=== PATIENT | male | born 1970 | race Caucasian/White ===

== ENCOUNTER 2020-01-16 21:03 | Emergency (ER) | payer BC, SELFPAY ==
[2020-01-16 21:41] VITALS: BP 181/97; PULSE 91; RESP 18; TEMP 39.2; O2SAT 99; BMI 48.4
--- NOTE | 2020-01-16 21:47 | XRR_ITS ---
PROCEDURE INFORMATION: Exam: XR Chest, 1 View Exam date and time: 01/16/2020 10:22 PM Age: 49 years old Clinical indication: Cough and fever; Prior surgery; Surgery date: <1 month; Patient HX: Gastric sleeve TECHNIQUE: Imaging protocol: XR of the chest Views: 1 view. COMPARISON: CR Chest 1 [place] [id number] 05/03/2019 12:41 PM FINDINGS: Lungs: Unremarkable. No consolidation. Pleural space: Unremarkable. No pleural effusion. No pneumothorax. Heart/Mediastinum: Unremarkable. No cardiomegaly. Bones/joints: Unremarkable. XR/XR chest 1V portable [id number] IMPRESSION: No acute findings. Stable chest compared with 05/03/2019.
[2020-01-16 22:05] LABS: Basophils # 0.1 10^3/uL (0.0-0.1); Basophils % 0.4 %; Eosinophils % 0.2 %; Hematocrit 41.4 % (42.0-52.0); Hemoglobin 13.1 g/dL (11.7-16.6); Lymphocytes # 0.8 10^3/uL (0.8-4.8); Lymphocytes % 6.2 %; Mean Corpuscular HGB Conc 31.6 g/dL (30.0-36.0); Mean Corpuscular Hemoglobin 25.8 pg (28.0-34.0); Mean Corpuscular Volume 81.7 fL (80-94); Mean Platelet Volume 9.3 fL (7.4-10.4); Monocytes # 0.6 10^3/uL (0.2-0.9); Monocytes % 5.1 %; Neutrophils % 87.9 %; Nucleated Red Blood Cells % 0 %; Platelet Count 367 10^3/cmm (130-400); Red Blood Count 5.07 10^6/uL (4.1-5.3); Red Cell Distribution Width 14.2 % (12.1-15.1); White Blood Count 12.5 10^3/uL (4.0-10.0)
--- NOTE | 2020-01-16 22:05 | W.ED.FEVER ---
HPI - Fever General: Chief Complaint: Fever Stated Complaint: fever, sob, londono, back pain, cough Time Seen by Provider: 01/16/20 21:47 Source: patient Mode of arrival: ambulatory Limitations: no limitations History of Present Illness: HPI Narrative: 49-year-old male comes in today with complaints of fever and cough starting today. Patient states yesterday he did throw up once or twice and then since then he is woke up with a headache this morning and noted that he had a cough starting this evening with fever. Patient appears mildly unwell. Patient appears in no acute distress. MD elicited complaint: fever and malaise Review of Systems General: Reports: 10 or more systems reviewed and unremarkable except in HPI and below Const: Reports: fever(s) Physical Exam Const: COMMON NORMALS: no acute distress and patient oriented x3 GENERAL APPEARANCE: cooperative HENMT: COMMON NORMALS: normocephalic and Normal external nose present HEAD & SCALP: normal to inspection and normocephalic NOSE: Normal external nose present MOUTH: Normal oral and palatal mucosa present THROAT: posterior oropharynx normal Eye: GENERAL EYE: appearance normal, both eyes and all related structures Neck/C-Spine: COMMON NORMALS: full ROM Lymph: LYMPHATIC: no lymphadenopathy noted Chest: COMMONS NORMALS: normal inspection of the chest Resp: COMMON NORMALS: normal respiratory effort EFFORT & INSPECTION: Yes able to speak in complete sentences Cardio: COMMON NORMALS: regular rate and regular rhythm RATE: regular rate RHYTHM: regular rhythm GI: COMMON NORMALS: non-tender : COMMON NORMALS: Yes no CVA tenderness BLADDER/KIDNEY EXAM: Yes no CVA tenderness Back/Pelvis: COMMON NORMALS: no CVA tenderness and thoracic and lumbar spine normal to inspection Extremity: COMMON NORMALS: normal to inspection Neuro: COMMON NORMALS: patient oriented x3 and moves all extremities Psych: COMMON NORMALS: mental status grossly normal and cooperative Skin: COMMON NORMALS: no rashes or lesions noted GENERAL SKIN EXAM: no rashes or lesions noted Course Vital Signs: Vital signs: Vital Signs Temperature 102.5 F H 01/16/20 21:41 Pulse Rate 100 01/16/20 23:08 Respiratory Rate 17 01/16/20 22:29 Blood Pressure 169/84 01/16/20 22:29 Pulse Oximetry 94 01/16/20 23:08 MDM - Fever MDM Narrative: Medical decision making narrative: Patient comes in today for complaints of emesis x2 yesterday, fever with cough and nasal drainage starting today. 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 Exam notes fever of 102.5 and normal vital signs except for some mild elevated blood pressure. Abdomen soft nontender. Lungs are clear to auscultation. No signs of other infection is noted on exam. Differential diagnosis includes but not limited to viral infection, pneumonia, urinary tract infection, influenza, strep pharyngitis, COVID-19. Strep and flu were both negative. Chest x-ray was normal. CBC showed a little bit of elevation in the white blood cells at 12,000, CMP was normal, and urinalysis was clear. Reviewed exam with patient recommendations for treatment and follow-up. Patient reports understanding agreed to plan with need to return to the ER for worsening symptoms or new concerns. Lab Data: Labs: Lab Results 01/16/20 01/16/20 01/16/20 Range/Units 20:58 20:58 20:58 WBC 12.5 H (4.0-10.0) 10^3/ uL RBC 5.07 (4.1-5.3) 10^6/u L Hgb 13.1 (11.7-16.6) g/dL Hct 41.4 L (42.0-52.0) % MCV 81.7 (80-94) fL MCH 25.8 L (28.0-34.0) pg MCHC 31.6 (30.0-36.0) g/dL RDW 14.2 (12.1-15.1) % Plt Count 367 (130-400) 10^3/c mm MPV 9.3 (7.4-10.4) fL Neut % (Auto) 87.9 % Lymph % (Auto) 6.2 % [place] % (Auto) 5.1 % Eos % (Auto) 0.2 % Baso % (Auto) 0.4 % Neut # (Auto) 11.00 H (1.8-7.7) 10^3/u L Lymph # (Auto) 0.8 (0.8-4.8) 10^3/u L [place]oddard # (Auto) 0.6 (0.2-0.9) 10^3/u L Eos # (Auto) 0.0 (0.0-0.8) 10^3/u L Baso # (Auto) 0.1 (0.0-0.1) 10^3/u L Nucleated RBC % (a uto) 0 % Nucleated RBCs # 0.0 /100WBC Sodium 138 (136-145) mmol/L Potassium 4.6 (3.5-5.1) mmol/L Chloride 103 (98-107) mmol/L Carbon Dioxide 26 (22-29) mmol/L Anion Gap 13.6 (5-19) BUN 13 (6-20) mg/dL Creatinine 0.8 (0.7-1.2) mg/dL GFR Calculation 102.7 (90-130) mL/min Glucose 98 (65-115) mg/dL Calculated Osmolal ity 282 L (285-295) mOsm/k g Lactic Acid 1.0 (0.5-2.2) mmol/L Calcium 9.6 (8.5-10.5) mg/dL Total Bilirubin 0.3 (0.15-1.2) mg/dL AST 24 (0-40) U/L ALT 31 (0-41) U/L Alkaline Phosphata se 103 (40-130) IU/L Total Protein 8.0 (6.6-8.7) g/dL Albumin 4.3 (3.5-5.2) g/dL Globulin 3.7 (1.3-4.6) g/dL Urine Color (Yellow) Urine Appearance (CLEAR) Urine pH (5-7) Ur Specific Gravit y (1.005-1.030) Urine Protein (Negative) Urine Glucose (UA) (Normal) Urine Ketones (Negative) Urine Blood (Negative) Urine Nitrate (Negative) Urine Bilirubin (NEGATIVE) Prot Sulfosalicyli c Acd (Negative) Urine Urobilinogen (Negative) mg/dL Ur Leukocyte Zamzam ase (Negative) Influenza Type A A g (Negative) Influenza Type B A g (Negative) Group A Strep Rapi d (Negative) 01/16/20 01/16/20 01/16/20 Range/Units 21:59 21:59 22:19 WBC (4.0-10.0) 10^3/ uL RBC (4.1-5.3) 10^6/u L Hgb (11.7-16.6) g/dL Hct (42.0-52.0) % MCV (80-94) fL MCH (28.0-34.0) pg MCHC (30.0-36.0) g/dL RDW (12.1-15.1) % Plt Count (130-400) 10^3/c mm MPV (7.4-10.4) fL Neut % (Auto) % Lymph % (Auto) % [place] % (Auto) % Eos % (Auto) % Baso % (Auto) % Neut # (Auto) (1.8-7.7) 10^3/u L Lymph # (Auto) (0.8-4.8) 10^3/u L Stoddard # (Auto) (0.2-0.9) 10^3/u L Eos # (Auto) (0.0-0.8) 10^3/u L Baso # (Auto) (0.0-0.1) 10^3/u L Nucleated RBC % (a uto) % Nucleated RBCs # /100WBC Sodium (136-145) mmol/L Potassium (3.5-5.1) mmol/L Chloride (98-107) mmol/L Carbon Dioxide (22-29) mmol/L Anion Gap (5-19) BUN (6-20) mg/dL Creatinine (0.7-1.2) mg/dL GFR Calculation (90-130) mL/min Glucose (65-115) mg/dL Calculated Osmolal ity (285-295) mOsm/k g Lactic Acid (0.5-2.2) mmol/L Calcium (8.5-10.5) mg/dL Total Bilirubin (0.15-1.2) mg/dL AST (0-40) U/L ALT (0-41) U/L Alkaline Phosphata se (40-130) IU/L Total Protein (6.6-8.7) g/dL Albumin (3.5-5.2) g/dL Globulin (1.3-4.6) g/dL Urine Color Yellow (Yellow) Urine Appearance Clear (CLEAR) Urine pH 8 H (5-7) Ur Specific Gravit y 1.010 (1.005-1.030) Urine Protein Neg (Negative) Urine Glucose (UA) Norm (Normal) Urine Ketones Negative (Negative) Urine Blood Neg (Negative) Urine Nitrate Negative (Negative) Urine Bilirubin Neg (NEGATIVE) Prot Sulfosalicyli c Acd Negative (Negative) Urine Urobilinogen Norm (Negative) mg/dL Ur Leukocyte Zamzam ase Negative (Negative) Influenza Type A A g Negative (Negative) Influenza Type B A g Negative (Negative) Group A Strep Rapi d Negative (Negative) Discharge Plan Discharge Patient Disposition: Home Clinical Impression: Viral infection, Fever of unknown origin Condition: Stable Discharge Orders: Discharge Order (Routine); Ordered 01/16/20 Ordered By: Fernie Madison Referrals: Eitan Mackay MD [Primary Care Provider] - Discharge Diet: Usual diet Discharge Activity: Increase activity as tolerated Patient Instructions: Viral Syndrome (ED) Activity Restrictions/Additional Instructions: Drink plenty of water. Use acetaminophen and ibuprofen for pain and fever. The CDC at this time recommends that you self quarantine for 10 days after start of symptoms. At the end of the 10 days as long as you have been fever free for 24 hours you may return to normal activity. Return to the emergency department for worsening signs and symptoms with increased shortness of breath, or new symptoms. You may use [id number] cough or cold medications as needed. Follow-up with primary care as needed. Return to the ED for new concerns. 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
[2020-01-16 22:29] VITALS: BP 169/84; PULSE 96; RESP 17; O2SAT 97
[2020-01-16 22:30] LABS: Alanine Aminotransferase 31 U/L (0-41); Albumin Level 4.3 g/dL (3.5-5.2); Alkaline Phosphatase 103 IU/L (40-130); Anion Gap 13.6 (5-19); Aspartate Amino Transferase 24 U/L (0-40); Blood Urea Nitrogen 13 mg/dL (6-20); Calcium 9.6 mg/dL (8.5-10.5); Carbon Dioxide 26 mmol/L (22-29); Chloride 103 mmol/L (98-107); Creatinine Clr Calc Pharmacy 151.2306; Globulin 3.7 g/dL (1.3-4.6); Glomerular Filtration Rate 102.7 mL/min (90-130); Glucose 98 mg/dL (65-115); Osmolality Calculated 282 mOsm/kg (285-295); Potassium 4.6 mmol/L (3.5-5.1); Sodium 138 mmol/L (136-145); Total Bilirubin 0.3 mg/dL (0.15-1.2)
[2020-01-16] MEDS: ibuprofen 600 mg Tablet PO (22:31)
[2020-01-16 22:39] LABS: Add Urine Microscopic? NO
[2020-01-16 22:48] LABS: Bilirubin Urine Neg (NEGATIVE); Blood Urine Neg (Negative); Glucose Urine UA Norm (Normal); Ketones Urine Negative (Negative); Leukocyte Esterase Urine Negative (Negative); Nitrate Urine Negative (Negative); Protein Urine Neg (Negative); Sulfosalicylic Acid Urine Negative (Negative); Urine Appearance Clear (CLEAR); Urine Color Yellow (Yellow); Urobilinogen Urine Norm (Negative); pH Urine 8 (5-7)
[2020-01-16 22:55] LABS: Rapid Strep A Test Negative (Negative)
[2020-01-16 23:02] LABS: Influenza A by IFA Negative (Negative); Influenza B by IFA Negative (Negative)
[2020-01-16 23:08] VITALS: PULSE 100; O2SAT 94
[2020-01-16 23:51] VITALS: BP 152/79; PULSE 93; RESP 18; O2SAT 96
[2020-01-18 15:20] LABS: Quest SARS-CoV-2 RNA NOT DETECTED (NOT DETECTED)
== END 2020-01-16 23:52 | disposition home or self-care (01) ==
PROVIDERS: Emergency Provider Nurse Practitioner Family; PCP Internal Medicine
DX: B34.9 Viral infection, unspecified (principal)
CPT/HCPCS: 12345; 36415; 71045; 80053; 81003; 83605; 85025; 87081; 87635; 87804; 87880; 99282; 99283

== ENCOUNTER 2021-12-02 15:32 | Outpatient (CLI) | payer BC, SELFPAY ==
--- NOTE | 2021-12-02 15:46 | XRR_ITS ---
PROCEDURE INFORMATION: Exam: XR Right Forearm Exam date and time: 12/02/2021 3:53 PM Age: 51 years old Clinical indication: Lower or forearm; Right; Patient HX: Chronic pain RT wrist; Additional info: Right wrist pain, pain of right arm TECHNIQUE: Imaging protocol: XR Right forearm. Views: 2 views. COMPARISON: CR XR wrist RT min 3V* [id number] 12/02/2021 3:53 PM FINDINGS: Bones/joints: Bones intact and normally aligned. Joint spaces maintained. Soft tissues: Normal. XR/XR forearm RT 2V [id number] IMPRESSION: No acute radiographic findings.
--- NOTE | 2021-12-02 15:46 | XRR_ITS ---
PROCEDURE INFORMATION: Exam: XR Right Wrist Exam date and time: 12/02/2021 3:53 PM Age: 51 years old Clinical indication: Right; Patient HX: Chronic pain RT wrist; Additional info: Right wrist pain, pain of right arm TECHNIQUE: Imaging protocol: XR Right wrist. Views: 3 or more views. COMPARISON: CR XR forearm RT 2V [id number] 12/02/2021 3:53 PM FINDINGS: Bones/joints: Bones intact and normally aligned. Joint spaces maintained. Soft tissues: Normal. XR/XR wrist RT min 3V* [id number] IMPRESSION: No acute radiographic findings.
== END 2021-12-02 15:33 | disposition home or self-care (01) ==
LOC: RAD 15:35
PROVIDERS: PCP Internal Medicine; Visit Provider Nurse Practitioner Family
DX: M25.531 Pain in right wrist (principal); M79.601 Pain in right arm
CPT/HCPCS: 73090; 73110

== ENCOUNTER 2022-03-20 10:30 | Emergency (ER) | payer BC, SELFPAY ==
[2022-03-20 10:42] VITALS: BP 182/97; PULSE 75; RESP 18; TEMP 36.8; O2SAT 99; BMI 54.0
--- NOTE | 2022-03-20 10:48 | XR_ITS ---
WS: [id number] Exam: XR shoulder RT min 2V* [id number] Date/Time of Exam: 03/20/2022 10:54 AM Reason For Exam: injury to right shoulder No fracture or dislocation noted. Soft tissues are unremarkable. XR/XR shoulder RT min 2V* [id number] IMPRESSION: 1. Negative right shoulder.
--- NOTE | 2022-03-20 11:32 | ED_ITS ---
HPI - Extremity Problem General: Chief complaint: Extremity Injury, Upper Stated complaint: Right shoulder pain Time Seen by Provider: 03/20/22 11:24 History of Present Illness: Patient is a 51-year-old male comes to the ED with right shoulder pain. Patient says symptoms started approximately 4 days ago. 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 He woke up 4 days ago with pain in his right shoulder that radiates down to his arm and goes up into right side of his neck. He rates the pain currently 9 out of 10. Any movement in right arm and right shoulder causes worsening symptoms. He endorses having full range of motion in right arm and shoulder but it does cause pain. Patient is taken some leftover Percocet he had from a previous surgery and it helped his pain a little bit. Denies any fall or trauma to cause worsening pain. Denies any chest pain or shortness of breath. Associated symptoms: Deny chest pain, fever(s) or rash Review of Systems Const: Denies: fever(s), chills or fatigue Eyes: Denies: change in vision or eye discomfort ENMT: Denies: throat pain, odynophagia, nasal discharge or nasal congestion Card: Denies: chest pain, palpitations, edema, swelling of feet/ankles, dyspnea on exertion or orthopnea Resp: Denies: dyspnea, productive cough or non-productive cough GI: Denies: abdominal pain, nausea, vomiting, diarrhea, constipation or hematochezia : Denies: flank pain, difficulty urinating, dysuria or hematuria Musc: Reports: extremity pain (Right shoulder); Denies: neck pain, back pain or extremity swelling Skin/Breast: Denies: rash or new lesions Neuro: Denies: headache(s), numbness in extremities or weakness in extremities PFS ED PFSH: Medical History (Updated 03/21/22 @ 17:17 by NATALIA Salcedo) No pertinent family history Surgical History (Updated 03/21/22 @ 17:17 by NATALIA Salcedo) No pertinent past surgical history Social History Smoking and tobacco status: never smoked Physical Exam Const: COMMON NORMALS: patient oriented x3 and alert GENERAL APPEARANCE: cooperative HENMT: COMMON NORMALS: normocephalic HEAD & SCALP: normocephalic MOUTH: Normal oral and palatal mucosa present THROAT: posterior oropharynx normal and uvula midline Neck/C-Spine: COMMON NORMALS: supple GENERAL: Yes normal visual inspection Resp: COMMON NORMALS: normal respiratory effort, No retractions, No use of acc essory muscles and clear to auscultation bilaterally AUSCULTATION: clear to auscultation bilaterally Cardio: COMMON NORMALS: regular rate, regular rhythm, S1 normal heart sound present, S2 normal heart sound present, No gallops present (Cardio), No clicks present (Cardio), No murmurs present (Cardio) and Peripheral pulses 2+ throughout RATE: regular rate RHYTHM: regular rhythm HEART SOUNDS: S1 normal heart sound present and S2 normal heart sound present PERIPHERAL PULSES: Peripheral pulses 2+ throughout GI: COMMON NORMALS: Normal to inspection, nondistended, normoactive bowel sounds present, Soft to palpation, non-tender and no masses PALPATION: Yes Soft to palpation : COMMON NORMALS: Yes no CVA tenderness BLADDER/KIDNEY EXAM: Yes no CVA tenderness Back/Pelvis: COMMON NORMALS: no CVA tenderness Extremity: NARRATIVE EXTREMITY EXAM: Right shoulder?full range of motion but endorses some discomfort?relief of pain briefly when right arm is abducted over head. Tenderness over the posterior aspect of shoulder. Neurovascular tact distally. GENERAL: Yes normal exam except as noted Neuro: COMMON NORMALS: patient oriented x3 SENSORIUM/ORIENTATION: Yes alert GAIT: Yes Normal gait present Skin: GENERAL SKIN EXAM: dry skin Course Vital Signs: Vital signs: Vital Signs Temperature 98.2 F 03/20/22 10:42 Pulse Rate 75 03/20/22 10:42 Respiratory Rate 20 H 03/20/22 12:13 Blood Pressure 182/97 03/20/22 10:42 Pulse Oximetry 99 03/20/22 10:42 Oxygen Delivery Me thod 03/20/22 10:42 MDM - Extremity (Nontraumatic) Medical Decision Making Patient is a 51-year-old male comes to the ED with right shoulder pain. 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 Denies any chest pain or shortness of breath. Vitals are stable. Patient does appear to be in some pain with his right shoulder. He and has full range of motion but endorses some pain with range of motion. Neurovascular intact. He has some tenderness to the posterior aspect of right shoulder. X-ray of right shoulder and cervical spine showed no acute findings. Patient was given a shot of morphine and Norflex and Solu- Medrol and he only reports a little relief from pain. Given patient's clinical appearance and his discomfort and pain I am referring him to Ortho for follow-up on right shoulder pain. He was put in a shoulder sling and discharged home with a prescription for steroid, ibuprofen 800 mg, muscle relaxer and a couple hydrocodone for pain. Return to ED precautions given. Patient is done agree with plan. Lab Data Radiology Impressions Shoulder X-Ray 03/20/22 10:48 IMPRESSION: 1. Negative right shoulder. Cervical Spine X-Ray 03/20/22 11:42 IMPRESSION: 1. No fracture or malalignment. Discharge Plan Discharge Patient Disposition: Home Clinical Impression: Right shoulder pain Qualifiers: Chronicity: acute Qualified Code(s): M25.511 - Pain in right shoulder Condition: Stable Prescriptions: New prednisone 20 mg tablet 20 mg PO BID 5 Days Qty: 10 0RF cyclobenzaprine 10 mg tablet 10 mg PO BID PRN (Reason: muscle spasm) Qty: 20 0RF ibuprofen 800 mg tablet 800 mg PO Q8H PRN (Reason: pain) Qty: 20 0RF ondansetron 4 mg tablet,disintegrating 4 mg PO Q8H PRN (Reason: nausea and vomiting) Qty: 12 0RF No Action Adacel(Tdap Adolesn/Adult)(PF) 2 Lf-(2.5-5-3-5 mcg)-5Lf/0.5 mL syringe 0.5 ml IM ONCE Qty: 0.5 0RF cephalexin 500 mg capsule 500 mg PO TID 10 Days Qty: 30 0RF Discharge Orders: Discharge ED (Routine); Ordered 03/20/22 Ordered By: Johnny Brody Referrals: Eitan Mackay MD [Primary Care Provider] - Discharge Diet: Regular Discharge Activity: Limit activity as instructed Patient Instructions: Opioid Safety Activity Restrictions/Additional Instructions: Follow-up with medical provider as directed. Case management to be contacted in the next several days set up an appointment with Ortho for follow-up. Take medications as prescribed. Rest and ice right shoulder multiple times a day for about 10 to 15 minutes to help with symptoms. Return to the ER or your medical provider if condition worsens. Please read and understand discharge instructions. Thank you for choosing [facility] for your healthcare needs today. Please realize this is an emergency room and that we are providing you with a medical screening exam and this may not be complete and all inclusive of all the testing and or work up that you may need to determine your ailment or severity of your illness. It is very important that you follow up as instructed or that you return to the Emergency Department should you have concerns or if your condition changes or worsens in any way. 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
--- NOTE | 2022-03-20 11:42 | XR_ITS ---
WS: [id number] Exam: XR cervical spine 3V* [id number] Date/Time of Exam: 03/20/2022 11:44 AM Reason For Exam: pain radiating from neck down to r. shoulder and arm No fracture or dislocation involving the upper 6 cervical vertebra. C7 is not completely visualized o n the lateral view. Disc spaces are well-maintained. Posterior elements are intact. Paraspinal soft t issues are unremarkable. The odontoid is intact. XR/XR cervical spine 3V* [id number] IMPRESSION: 1. No fracture or malalignment.
[2022-03-20] MEDS: orphenadrine 30 mg/mL Inj 2 mL 60 MG IM (12:03)
[2022-03-20 12:13] VITALS: RESP 20
[2022-03-20] MEDS: morphine 4 mg/mL SDV 1 mL IM (12:13)
--- NOTE | 2022-03-21 07:58 | DCPLANNER ---
Addendum entered by Mandy Aguirre 03/24/22 09:56: Patient has a follow up appointment scheduled with ortho - patient did attend appointment. Addendum entered by Mandy Aguirre 03/21/22 15:00: Patient has a follow up appointment scheduled for , March 23, 2022 at 7:[address] Brody at ortho. Clinic will call patient with appointment information. Original Note: gift shop manager had message to schedule a follow up appointment for patient with ortho. gift shop manager sent patients information to the front office staff at ortho. Patients information will be printed and reviewed. Clinic will call patient with appointment information.
== END 2022-03-20 13:05 | disposition home or self-care (01) ==
PROVIDERS: Emergency Provider Physician Assistant; PCP Internal Medicine
DX: M25.511 Pain in right shoulder (principal)
CPT/HCPCS: 72040; 73030; 96372; 99284; J2270; J2360; J2930

== ENCOUNTER 2022-09-23 15:04 | Outpatient (CLI) | payer BC, SELFPAY ==
--- NOTE | 2022-09-23 15:51 | XRR_ITS ---
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 Views: 3 or more views. COMPARISON: No relevant prior studies available. FINDINGS: Bones/joints: There mild degenerative changes across the pubic symphysis and sacroiliac joints. There are small marginal osteophytes at the superolateral aspects of the acetabula. Soft tissues: Normal. XR/XR sacroiliac jts m 3V [id number] IMPRESSION: No acute findings.Non acute findings as described above.
--- NOTE | 2022-09-23 15:51 | XRR_ITS ---
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 Views: 2 or 3 views. COMPARISON: No relevant prior studies available. FINDINGS: Bones/joints: There are degenerative changes throughout the visualized spine including marginal osteophyte formations, endplate degenerative changes, and facet arthropathy. Multilevel disc space narrowing. There are minimal chronic appearing anterior compression deformities of the T11, T12, and L1 vertebra. Soft tissues: Unremarkable. XR/XR lumbar spine 2-3V* [id number] IMPRESSION: 1. There are minimal chronic appearing anterior compression deformities of the T11, T12, and L1 vertebra. 2. There are degenerative changes as described above. No evidence for acute fracture.
--- NOTE | 2022-09-23 15:51 | XRR_ITS ---
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 Views: 3 or more views. COMPARISON: No relevant prior studies available. FINDINGS: Bones/joints: Normal. Soft tissues: Normal. XR/XR hand RT min 3V* [id number] IMPRESSION: No acute findings.
[2022-09-23 16:31] LABS: Erythrocyte Sedimentation Rate 39 mm/hr (0-10)
[2022-09-23 16:47] LABS: 25 Hydroxy Vitamin D 14 ng/mL (30-100)
[2022-09-23 18:03] LABS: Hepatitis B Core AB, Total Non-Reactive (Nonreactive); Hepatitis B Surface Antigen Non-Reactive (Nonreactive); Hepatitis C Virus Antibody Non-Reactive (Nonreactive)
[2022-09-25 14:10] LABS: Cyclic Citrullinated Peptide <16 UNITS
[2022-09-26 22:59] LABS: HLA-B27 NEGATIVE (NEGATIVE)
== END 2022-09-23 15:05 | disposition home or self-care (01) ==
PROVIDERS: PCP Internal Medicine; Visit Provider Internal Medicine Rheumatology
DX: Z11.59 Encounter for screening for other viral diseases (principal); M19.90 Unspecified osteoarthritis, unspecified site; Z79.899 Other long term (current) drug therapy; M45.6 Ankylosing spondylitis lumbar region
CPT/HCPCS: 36415; 72100; 72202; 73130; 82306; 85651; 86140; 86200; 86431; 86480; 86704; 86803; 86812; 87340

== ENCOUNTER → 2022-09-29 10:33 | Outpatient (BNVA) | payer BC, SELFPAY | PROVIDERS: PCP Internal Medicine; Visit Provider Internal Medicine Rheumatology | DX: M19.90 Unspecified osteoarthritis, unspecified site (principal); Z11.59 Encounter for screening for other viral diseases; Z79.899 Other long term (current) drug therapy | CPT/HCPCS: 86480 ==

== ENCOUNTER → 2022-10-12 11:49 | Outpatient (BNVA) | payer BC, SELFPAY | PROVIDERS: PCP Internal Medicine; Visit Provider Nurse Practitioner Family | DX: Z13.220 Encounter for screening for lipoid disorders (principal); Z12.5 Encounter for screening for malignant neoplasm of prostate; E55.9 Vitamin D deficiency, unspecified; Z68.43 Body mass index [BMI] 50.0-59.9, adult; Z98.84 Bariatric surgery status | CPT/HCPCS: 80053; 80061; 84443; G0103 ==

== ENCOUNTER 2022-10-13 14:15 | Outpatient (CLI) | payer BC, SELFPAY ==
--- NOTE | 2022-10-13 14:00 | XR_ITS ---
WS: [id number] DEXA (DUAL ENERGY X-RAY ABSORPTIOMETRY) Bone mineral density was performed using a Seekly machine. HISTORY: M81.0 - Age-related osteoporosis without current pathology... COMPARISON: None available. Lumbar spine BMD (L2-L3): 1.711 T score: 3.9 Z score: 2.4 Total hip BMD: Left: 1.139 g/cm2. T score: 0.3 Z score: 0.2 Right: 1.137 g/cm2. T score: 0.3 Z score: 0.2 10 year probability of a major osteoporotic fracture is 4.4%. XR/XR DEXA axial skeleton* [id number] IMPRESSION: NORMAL BONE MINERAL DENSITY.
== END 2022-10-13 14:16 | disposition home or self-care (01) ==
PROVIDERS: PCP Internal Medicine; Visit Provider Internal Medicine Rheumatology
DX: M81.0 Age-related osteoporosis without current pathological fracture (principal)
CPT/HCPCS: 77080

== ENCOUNTER → 2023-03-15 16:22 | Outpatient (BNVA) | payer BC, SELFPAY | PROVIDERS: PCP Nurse Practitioner Family; Visit Provider Nurse Practitioner Family | DX: Z13.1 Encounter for screening for diabetes mellitus; I10 Essential (primary) hypertension; Z76.89 Persons encountering health services in other specified circumstances | CPT/HCPCS: 80053; 80061; 82306; 83036 ==

== ENCOUNTER → 2023-11-13 08:58 | Outpatient (BNVA) | payer BC, SELFPAY | PROVIDERS: PCP Nurse Practitioner Family; Visit Provider Nurse Practitioner Family | DX: R53.83 Other fatigue (principal); R42 Dizziness and giddiness; R51.9 Headache, unspecified; R55 Syncope and collapse; Z68.43 Body mass index [BMI] 50.0-59.9, adult; I10 Essential (primary) hypertension; G44.209 Tension-type headache, unspecified, not intractable; J32.9 Chronic sinusitis, unspecified | CPT/HCPCS: 80053; 80061; 83036; 84443; 85025; 93005 ==

== ENCOUNTER → 2024-05-26 11:35 | Outpatient (BNVA) | payer BC, SELFPAY | PROVIDERS: PCP Nurse Practitioner Family; Visit Provider Internal Medicine Cardiovascular Disease | DX: R07.9 Chest pain, unspecified (principal); R55 Syncope and collapse | CPT/HCPCS: 93005 ==

== ENCOUNTER 2024-09-23 06:00 | Outpatient (RCR) | payer BC, SELFPAY | END 2024-10-22 23:59 | disposition home or self-care (01) | LOC: TPT 06:00 | PROVIDERS: PCP Nurse Practitioner Family; Visit Provider Nurse Practitioner Family | DX: M54.16 Radiculopathy, lumbar region (principal) | CPT/HCPCS: 97110; 97162 ==

== ENCOUNTER 2024-09-23 16:57 | Outpatient (CLI) | payer BC, SELFPAY ==
--- NOTE | 2024-09-23 17:10 | CTR_ITS ---
PROCEDURE INFORMATION: Exam: CT Lumbar Spine Without Contrast Exam date and time: 09/23/2024 5:18 PM Age: 53 years old Clinical indication: Low back pain x 10 weeks, no known injury; Additional info: Low back pain, radiculopathy lumbar region TECHNIQUE: Imaging protocol: Computed tomography of the lumbar spine without contrast. Radiation optimization: All CT scans at this facility use at least one of these dose optimization techniques: automated exposure control; mA and/or kV adjustment per patient size (includes targeted exams where dose is matched to clinical indication); or iterative reconstruction. COMPARISON: CR XR lumbar spine 2-3V* [id number] 09/23/2022 3:52 PM RADIATION DOSE METRICS: Total DLP (mGy-cm): 1977.19 FINDINGS: Bones/joints: Alignment is normal. Diffuse degenerative disc disease and facet arthropathy. Severe canal stenosis at L4-L5. Moderate stenosis L3-L4. Substantial erosive changes bilaterally in the L4-L5 facet joints. No acute fracture seen. Mild nonacute T12 compression fracture. Severe left-sided bony neural foraminal narrowing at L5-S1. Soft tissues: Unremarkable. CT/CT lumbar spine wo con* [id number] IMPRESSION: 1. Diffuse degenerative changes. 2. Severe stenosis L4-L5. 3. Severe bony neural foraminal narrowing on the left side at L5-S1. 4. Substantial erosive facet arthropathy at L4-L5.
== END 2024-09-23 16:58 | disposition home or self-care (01) ==
PROVIDERS: PCP Nurse Practitioner Family; Visit Provider Registered Nurse
DX: M48.061 Spinal stenosis, lumbar region without neurogenic claudication (principal); M54.16 Radiculopathy, lumbar region; M48.07 Spinal stenosis, lumbosacral region; M47.896 Other spondylosis, lumbar region; M51.369 Other intervertebral disc degeneration, lumbar region without mention of lumbar back pain or lower extremity pain; M48.54XD Collapsed vertebra, not elsewhere classified, thoracic region, subsequent encounter for fracture with routine healing
CPT/HCPCS: 72131

== ENCOUNTER 2024-10-23 05:00 | Outpatient (RCR) | payer BC, SELFPAY | END 2024-11-22 23:59 | disposition home or self-care (01) | LOC: TPT 05:00 | PROVIDERS: PCP Nurse Practitioner Family; Visit Provider Nurse Practitioner Family | DX: M54.16 Radiculopathy, lumbar region (principal) | CPT/HCPCS: 97110 ==

== ENCOUNTER 2024-11-23 05:00 | Outpatient (RCR) | payer BC, SELFPAY | END 2024-12-22 23:59 | disposition home or self-care (01) | LOC: TPT 05:00 | PROVIDERS: PCP Nurse Practitioner Family; Visit Provider Nurse Practitioner Family | DX: M54.16 Radiculopathy, lumbar region (principal) | CPT/HCPCS: 97110 ==

== ENCOUNTER 2024-12-23 05:00 | Outpatient (RCR) | payer BC, SELFPAY | END 2025-01-22 23:59 | disposition home or self-care (01) | LOC: TPT 05:00 | PROVIDERS: PCP Nurse Practitioner Family; Visit Provider Nurse Practitioner Family | DX: M54.16 Radiculopathy, lumbar region (principal) | CPT/HCPCS: 97110 ==

== ENCOUNTER 2025-03-27 08:02 | Outpatient (RCR) | payer BC, SELFPAY | END 2025-04-24 23:59 | disposition home or self-care (01) | LOC: TPT 08:02 | PROVIDERS: Visit Provider Nurse Practitioner Family | DX: M54.16 Radiculopathy, lumbar region (principal) | CPT/HCPCS: 97161 ==

== ENCOUNTER → 2025-04-22 11:08 | Outpatient (BNVA) | payer BC, SELFPAY | PROVIDERS: PCP Nurse Practitioner Family; Visit Provider Nurse Practitioner Family | DX: F41.9 Anxiety disorder, unspecified (principal); I10 Essential (primary) hypertension; W57.XXXA Bitten or stung by nonvenomous insect and other nonvenomous arthropods, initial encounter | CPT/HCPCS: 80053; 80061; 83036; 84443; 85025; 86003; 86008 ==

== ENCOUNTER → 2025-06-02 11:57 | Outpatient (BNVA) | payer BC, SELFPAY | PROVIDERS: PCP Nurse Practitioner Family; Visit Provider Nurse Practitioner Family | DX: R04.0 Epistaxis (principal) | CPT/HCPCS: 85025 ==

== ENCOUNTER 2025-06-15 15:55 | Outpatient (CLI) | payer BC, SELFPAY ==
--- NOTE | 2025-06-15 16:00 | CT_ITS ---
WS: [id number] CT HEAD NONCONTRAST HISTORY: R51.9 - Headache, unspecified TECHNIQUE: Contiguous axial imaging performed through the brain. Bone and soft tissue windows. Sagittal and coronal reformats reviewed. All CT scans at [facility] use at least one of these dose optimization techniques: automated exposure control; mA and/or kV adjustment per patient size (includes targeted exams where dose is matched to clinical indication); or iterative reconstruction. DLP: 1124.08 mGy.cm COMPARISON: None available. No acute intracranial hemorrhage, midline shift or mass effect. Mild atrophy and mild small vessel changes. No edema or midline shift. Negative posterior fossa. Ventricles: Normal size with no hydrocephalus. No inferior displacement of cerebellar tonsils. Paranasal sinuses: As visualized are clear. Mastoid air cells: Well pneumatized. Calvarium and scalp: Skull is intact with no soft tissue edema or swelling. CT/CT head wo con* [id number] IMPRESSION: 1. No acute intracranial hemorrhage or edema. 2. Very mild atrophy and small vessel disease.
== END 2025-06-15 15:56 | disposition home or self-care (01) ==
LOC: RAD 15:55
PROVIDERS: PCP Nurse Practitioner Family; Visit Provider Nurse Practitioner Family
DX: R51.9 Headache, unspecified (principal); R04.0 Epistaxis; I67.89 Other cerebrovascular disease
CPT/HCPCS: 70450